=== PATIENT | male | born 1950 | race Caucasian/White ===

== ENCOUNTER → 2016-12-06 | Outpatient (CLI) | payer MEDICARE, OTHER ==
[2016-12-06 13:13] LABS: ANION GAP 5 MEQ/L (5-15); AST (GOT) 17 U/L (15-37); BLOOD UREA NITROGEN 11 MG/DL (7-18); CHLORIDE 104 MEQ/L (98-107); GLOMERULAR FILTRATION RATE 68 ML/MIN (>89); GLUCOSE,FASTING 94 MG/DL (74-99); POTASSIUM 4.6 MEQ/L (3.5-5.1); SODIUM (NA) 137 MEQ/L (136-145)
[2016-12-06 13:14] LABS: ALT (GPT) 27 U/L (12-78)
[2016-12-06 13:24] LABS: ALKALINE PHOSPHATASE 65 U/L (45-117); LDL CHOLESTEROL 115 MG/DL (0-99); TOTAL BILIRUBIN ADULT 1.4 MG/DL (0.2-1.0)
[2016-12-06 16:55] LABS: HEMOGLOBIN A1a 1.1 %; HEMOGLOBIN A1b 1.7 %; HEMOGLOBIN Ao 86.1 %; HEMOGLOBIN LA1C 1.8 %; HEMOGLOBIN P3 3.4 %
== END ==
LOC: OLAB 09:15
PROVIDERS: ATTEND Family Medicine
DX: E78.5 Hyperlipidemia, unspecified (principal); R73.01 Impaired fasting glucose
CPT/HCPCS: 36415; 80053; 80061; 83036; 84443

== ENCOUNTER → 2017-06-05 | Outpatient (CLI) | payer MEDICARE, OTHER ==
[2017-06-05 09:30] LABS: ALBUMIN 3.8 GM/DL (3.4-5.0); BICARBONATE 28.7 MEQ/L (21.0-32.0); BLOOD UREA NITROGEN 11 MG/DL (7-18); CALCIUM 9.1 MG/DL (8.5-10.1); CHLORIDE 105 MEQ/L (98-107); CREATININE 1.23 MG/DL (0.60-1.30); GLOMERULAR FILTRATION RATE 59 ML/MIN (>89); GLUCOSE,FASTING 87 MG/DL (74-99); SODIUM (NA) 139 MEQ/L (136-145)
[2017-06-05 09:31] LABS: ALT (GPT) 18 U/L (12-78); AST (GOT) 15 U/L (15-37); CHOLESTEROL 184 MG/DL (120-200); TRIGLYCERIDES 152 MG/DL (42-150)
[2017-06-05 09:33] LABS: ALKALINE PHOSPHATASE 88 U/L (45-117); HDL CHOLESTEROL 44.8 MG/DL (40.0-60.0); LDL CHOLESTEROL 109 MG/DL (0-99); TOTAL BILIRUBIN ADULT 1.1 MG/DL (0.2-1.0); TOTAL PROTEIN 7.5 GM/DL (6.4-8.2)
== END ==
LOC: OLAB 07:40
PROVIDERS: ATTEND Family Medicine
DX: E78.5 Hyperlipidemia, unspecified (principal); Z12.5 Encounter for screening for malignant neoplasm of prostate
CPT/HCPCS: 36415; 80053; 80061; 84153